=== PATIENT | male | born 1990 | race Two or more races ===

== ENCOUNTER 2018-08-31 22:20 | Emergency (ER) | payer BC, MEDICAID ==
[~2018-08-31] VITALS: Ht 175.3 cm; Wt 81.6 kg
[2018-09-01 03:52] VITALS: BP 138/60
== END 2018-09-01 04:55 | disposition home or self-care (01) ==
LOC: ER 22:23
DX: M79.89 Other specified soft tissue disorders (principal); M79.641 Pain in right hand; R20.0 Anesthesia of skin; F17.210 Nicotine dependence, cigarettes, uncomplicated; F12.10 Cannabis abuse, uncomplicated
CPT/HCPCS: 73130; 94761

== ENCOUNTER 2018-11-15 10:15 | Emergency (ER) | payer MEDICAID ==
[~2018-11-15] VITALS: Ht 175.3 cm; Wt 83.9 kg
[2018-11-15 10:36] VITALS: BP 146/94
[2018-11-15] MEDS ORDERED: cefTRIAXone SOD 1,000 MG VL IM ONE (11:30)
== END 2018-11-15 12:20 | disposition home or self-care (01) ==
LOC: ER 10:16
DX: J03.90 Acute tonsillitis, unspecified (principal); B35.4 Tinea corporis; F17.210 Nicotine dependence, cigarettes, uncomplicated; F12.10 Cannabis abuse, uncomplicated
CPT/HCPCS: 96372; 99283; J0696